=== PATIENT | male | born 1990 | race Caucasian/White ===

== ENCOUNTER 2019-01-23 14:51 | Emergency (ER) | payer MEDICAID ==
--- NOTE | 2019-01-23 15:35 | EDM.PDOCBH ---
ED HPI GENERAL MEDICAL PROBLEM - General Chief Complaint: Drug or Alcohol Abuse Stated Complaint: MEDICAL VIA [facility] Time Seen by Provider: 01/23/19 15:15 Source of Information: Reports: Patient, EMS, RN History Limitations: Reports: Other (no old records) - History of Present Illness INITIAL COMMENTS - FREE TEXT/NARRATIVE: 28 yo male here via EMS after he got into an argument with his mother in a store in [place]. The mother called EMS and said the son was suicidal. EMS brought him here for evaluation. Here Ba admits to some alcohol ingestion and says he is not suicidal. He has no complaints of recent illness or pain. PHx of opiate abuse. Onset: Today Onset Date: 01/23/19 Duration: Hour(s): Location: Reports: Other (no pain) Severity: Mild (intoxication) Improves with: Reports: Other (? time) Worsens with: Reports: Other (? alcohol) Context: Reports: Other (See HPI) Associated Symptoms: Reports: No Other Symptoms Treatments [employer]: Reports: Other (see below) (none) ED ROS GENERAL - Review of Systems Review Of Systems: See Below Constitutional: Reports: No Symptoms HEENT: Reports: No Symptoms Respiratory: Reports: No Symptoms Cardiovascular: Reports: No Symptoms GI/Abdominal: Reports: No Symptoms : Reports: No Symptoms Musculoskeletal: Reports: No Symptoms Skin: Reports: No Symptoms Neurological: Reports: No Symptoms Psychiatric: Reports: No Symptoms ED EXAM, BEHAVIORAL HEALTH - Physical Exam Exam: See Below Exam Limited By: Intoxication General Appearance: Alert, WD/WN, No Apparent Distress Eye Exam: Bilateral Eye: Normal Inspection Ears: Normal External Exam, Normal Canal, Hearing Grossly Normal, Normal TMs Nose: Normal Inspection, Normal Mucosa, No Blood Throat/Mouth: Normal Inspection, Normal Lips, Normal Oropharynx, Normal Voice, No Airway Compromise Head: Atraumatic, Normocephalic Neck: Normal Inspection, Supple, Non-Tender Respiratory/Chest: No Respiratory Distress, Lungs Clear, Normal Breath Sounds, No Accessory Muscle Use Cardiovascular: Regular Rate, Rhythm, No Edema Extremities: Normal Inspection, Non-Tender, No Pedal Edema Neurological: Alert, Normal Mood/Affect, CN II-XII Intact, Normal Cognition, No Motor/Sensory Deficits, Oriented x 3 Psychiatric: Alert, Normal Affect, Normal Cognition, Normal Mood, Oriented Skin Exam: Warm, Dry, Intact, Normal color, No rash COURSE, BEHAVIORAL HEALTH COMP - Course Vital Signs: Last Vital Signs Temp 36.7 C 01/23/19 15:14 Pulse 73 01/23/19 15:14 Resp 16 01/23/19 15:14 BP 101/48 L 01/23/19 15:14 Pulse Ox 98 01/23/19 15:14 Orders, Labs, Meds: Laboratory Tests 01/23/19 01/23/19 Range/Units 14:56 15:00 Urine Opiates Screen Negative (NEGATIVE) Ur Oxycodone Screen Negative (NEGATIVE) Urine Methadone Screen Negative (NEGATIVE) Ur Propoxyphene Screen Negative (NEGATIVE) Ur Barbiturates Screen Negative (NEGATIVE) Ur Tricyclics Screen Negative (NEGATIVE) Ur Phencyclidine Scrn Negative (NEGATIVE) Ur Amphetamine Screen Negative (NEGATIVE) U Methamphetamines Scrn Negative (NEGATIVE) Urine MDMA Screen Negative (NEGATIVE) U Benzodiazepines Scrn Negative (NEGATIVE) U Cocaine Metab Screen Negative (NEGATIVE) U Marijuana (THC) Screen Negative (NEGATIVE) Ethyl Alcohol 200 mg/dL Departure - Departure Time of Disposition: 15:48 Disposition: Home, Self-Care 01 Condition: Fair Clinical Impression: Alcohol intoxication Qualifiers: Complication of substance-induced condition: with unspecified complication Qualified Code(s): F10.929 - Alcohol use, unspecified with intoxication, unspecified - Discharge Information *PRESCRIPTION DRUG MONITORING PROGRAM REVIEWED*: No *COPY OF PRESCRIPTION DRUG MONITORING REPORT IN PATIENT BIMAL: No Instructions: Alcohol Intoxication, [id number] Referrals: PCP,None [Primary Care Provider] - Forms: ED Department Discharge Additional Instructions: Follow through with alcohol treatment as per your plan. No driving or further drinking today. Recheck with your doctor as needed.
== END 2019-01-23 16:10 | disposition home or self-care (01) ==
LOC: JP.ED 14:51
DX: F10.129 Alcohol abuse with intoxication, unspecified (principal); Y90.7 Blood alcohol level of 200-239 mg/100 ml
CPT/HCPCS: 36415; 80305; 99285; G0480

== ENCOUNTER 2019-01-23 17:43 | Emergency (ER) | payer MEDICAID ==
[2019-01-23] MEDS ORDERED: LORazepam 1 MG Tab PO ONE ×2 (19:03→23:29)
--- NOTE | 2019-01-23 19:22 | EDM.PDOC ---
ED HPI GENERAL MEDICAL PROBLEM - General Chief Complaint: Behavioral/Psych Stated Complaint: SUICIDAL Time Seen by Provider: 01/23/19 19:17 Source of Information: Reports: Patient History Limitations: Reports: No Limitations - History of Present Illness INITIAL COMMENTS - FREE TEXT/NARRATIVE: pt arrived stating that he absolutely is not suicidal. His mother and him got in a large fight and he does not have his meds with him. His mother is in [place] and she has his meds and she will not come and get him or bring his meds to him. Onset: Other (pt was drinking earlier today and he got in a large fight with his mother. He has not drank since he left the hosp here earlier today. ) Duration: Hour(s): Location: Reports: Other (pt is feeling very anxiou and agiotated. ) Associated Symptoms: Reports: No Other Symptoms denies Pain Score (Numeric/FACES): 0 - Related Data Allergies Allergy/AdvReac Type Severity Reaction Status Date / Time No Known Allergies Allergy Verified 01/23/19 18:42 Home Meds: Home Meds Buprenorphine HCl 12 mg SL BID 01/23/19 [History] Citalopram Hydrobromide [Celexa] 40 mg PO DAILY 01/23/19 [History] DULoxetine [Cymbalta] 60 mg PO DAILY 01/23/19 [History] Gabapentin [Neurontin] 1 tab PO TID 01/23/19 [History] Past Medical History - Past Health History Medical/Surgical History: Denies Medical/Surgical History Musculoskeletal History: Reports: Fracture Other Musculoskeletal History: fx arm Neurological History: Reports: Concussion, Other (See Below) Other Neuro History: headaches Psychiatric History: Reports: Addiction, Anxiety, Depression, Schizophrenia Other Psychiatric History: Past heroin addiction and alcohol - Infectious Disease History Infectious Disease History: Reports: Chicken Pox - Past Surgical History Dermatological Surgical History: Reports: Other (See Below) Social & Family History - Tobacco Use Smoking Status *Q: Current Every Day Smoker Years of Tobacco use: 15 Packs/Tins Daily: 1 Used Tobacco, but Quit: No Second Hand Smoke Exposure: Yes - Caffeine Use Caffeine Use: Reports: Coffee, Energy Drinks, Soda, Tea - Alcohol Use Days Per Week of Alcohol Use: 3 Number of Drinks Per Day: 8 Total Drinks Per Week: 24 - Recreational Drug Use Recreational Drug Use: Yes Drug Use in Last 12 Months: Yes Recreational Drug Type: Reports: Heroin, Marijuana/Hashish, Methamphetamine ED ROS GENERAL - Review of Systems Review Of Systems: See Below Constitutional: Reports: No Symptoms HEENT: Reports: No Symptoms Respiratory: Reports: No Symptoms Cardiovascular: Reports: No Symptoms Endocrine: Reports: No Symptoms GI/Abdominal: Reports: No Symptoms : Reports: No Symptoms Neurological: Reports: No Symptoms Psychiatric: Reports: Agitation, Other (pt completely denies any suicidal issues. ) Hematologic/Lymphatic: Reports: No Symptoms - Physical Exam Exam: See Below Text/Narrative:: pt arrived with a history of opoid addiction and he has been clean for about 2 years. Exam Limited By: No Limitations General Appearance: Alert, No Apparent Distress, Anxious, Other (pt states he thinks he has a ride back to [place] [place]. His meds can be picked up prior to him returning to [facility]. ) Ears: Normal External Exam Nose: Normal Inspection Throat/Mouth: Normal Inspection Psychiatric: Anxious, Other (pt has sobered up at this time and he is ready to get a ride and get back on his meds. he has not had his suboxone today. ) Course - Vital Signs Last Recorded V/S: Last Vital Signs Temp 37.1 C 01/23/19 18:41 Pulse 91 01/23/19 18:41 Resp 16 01/23/19 18:41 BP 126/78 01/23/19 18:41 Pulse Ox 95 01/23/19 18:41 - Orders/Labs/Meds Labs: Laboratory Tests 01/23/19 01/23/19 01/23/19 Range/Units 18:45 18:45 18:45 WBC 6.1 (4.5-11.0) K/uL RBC 4.52 (4.30-5.90) M/uL Hgb 13.6 (12.0-15.0) g/dL Hct 39.6 L (40.0-54.0) % MCV 88 (80-98) fL MCH 30 (27-31) pg MCHC 34 (32-36) % Plt Count 265 (150-400) K/uL Neut % (Auto) 50 (36-66) % Lymph % (Auto) 40 (24-44) % [place] % (Auto) 7 H (2-6) % Eos % (Auto) 3 (2-4) % Baso % (Auto) 1 (0-1) % Sodium 141 (140-148) mmol/L Potassium 3.9 (3.6-5.2) mmol/L Chloride 103 (100-108) mmol/L Carbon Dioxide 30 (21-32) mmol/L Anion Gap 11.9 (5.0-14.0) mmol/L BUN 10 (7-18) mg/dL Creatinine 1.0 (0.8-1.3) mg/dL Est Cr Clr Drug Dosing 100.99 mL/min Estimated GFR (MDRD) > 60 (>60) Glucose 107 H (74-106) mg/dL Calcium 8.6 (8.5-10.1) mg/dL Total Bilirubin 0.5 (0.2-1.0) mg/dL AST 32 (15-37) U/L ALT 39 (12-78) U/L Alkaline Phosphatase 78 (46-116) U/L Total Protein 6.9 (6.4-8.2) g/dL Albumin 3.7 (3.4-5.0) g/dL Globulin 3.2 (2.3-3.5) g/dL Albumin/Globulin Ratio 1.2 (1.2-2.2) Ethyl Alcohol 126 mg/dL Meds: Medications Discontinued Medications Generic Name Dose Route Start Last Admin Trade Name Blairq PRN Reason Stop Dose Admin Al Hydroxide/Mg Hydroxide 30 ml 01/23/19 23:29 01/23/19 23:36 Mag-Al Plus PO 01/23/19 23:30 30 ml ONETIME ONE Administration Famotidine 20 mg 01/23/19 23:28 01/23/19 23:36 Pepcid PO 01/23/19 23:29 20 mg ONETIME ONE Administration Ibuprofen 600 mg 01/24/19 00:58 01/24/19 01:11 Motrin PO 01/24/19 00:59 600 mg ONETIME ONE Administration Lorazepam 1 mg 01/23/19 19:03 01/23/19 19:08 Ativan PO 01/23/19 19:04 1 mg ONETIME ONE Administration Lorazepam 1 mg 01/23/19 23:29 01/23/19 23:36 Ativan PO 01/23/19 23:30 1 mg ONETIME ONE Administration - Re-Assessments/Exams Free Text/Narrative Re-Assessment/Exam: 01/23/19 19:27 pt was given ativan 1 mg po because he was becoming agitated. Once again he completely denies any suicidal ideation. He states his mother told him to say he was suicidal so he could get a ride. 01/23/19 23:31 pt is having problems with acid reflux. He is seeming to get a little anxiou at this point. He is supposed to have someone comin to pick him up. Departure - Departure Time of Disposition: 04:35 Disposition: Home, Self-Care 01 Condition: Fair Clinical Impression: Intoxication - Discharge Information Referrals: PCP,None [Primary Care Provider] - Forms: ED Department Discharge Care Plan Goals: continue same medication, follow up with usual provider.
[2019-01-23] MEDS ORDERED: Famotidine 20 MG Tab PO ONE (23:28)
[2019-01-23] MEDS ORDERED: Aluminum Hydroxide/Magnesium Hydroxide/Simethicone Susp 30 ML Cup PO ONE (23:29)
[2019-01-24] MEDS ORDERED: Ibuprofen 600 MG Tab PO ONE (00:58)
== END 2019-01-24 04:33 | disposition home or self-care (01) ==
LOC: JP.ED 17:43
DX: F10.129 Alcohol abuse with intoxication, unspecified (principal); Y90.6 Blood alcohol level of 120-199 mg/100 ml; F17.210 Nicotine dependence, cigarettes, uncomplicated; Z79.899 Other long term (current) drug therapy
CPT/HCPCS: 36415; 80053; 85025; 99284; A9270; G0480; 80305-QW; 99285